=== PATIENT | male | born 1955 | race Caucasian/White ===

== ENCOUNTER → 2017-06-16 | Outpatient (CLI) | payer BC ==
[~2017-06-16] MED LIST: ASPIRIN325 MG PO; ATORVASTATIN CA20 MG PO; IOPAMIDOL 370 MG/ML 200 ML INFUS..BTL INJ ONE; LASIX20 MG PO; LEVOCETIRIZINE D5 MG PO; LISINOPRIL10 MG PO; LISINOPRIL2.5 MG PO; LOPRESSOR25 MG PO; MONTELUKAST SOD10 MG PO; NITROGLYCERIN0.4 MG SL; PLAVIX75 MG PO; SODIUM CHLORIDE 0.9% 50ML 100 ML ONE
[2017-06-16 15:53] LABS: BLOOD UREA NITROGEN 21 mg/dL (7-26); BUN/CREATININE RATIO 22 (6-25); CREATININE, SERUM 0.94 mg/dL (0.72-1.25); EST GLOMERULAR FILTRATION RATE > 60 ML/MIN (60-)
--- NOTE | 2017-06-19 14:15 | Diagnostic Imaging Report ---
EXAM: CTA Chest Abdomen, WITH contrast INDICATION: COMPARISON: None. TECHNIQUE: Angiogram of the Chest, Abdomen, was scanned utilizing a multidetector helical scanner after administration of IV contrast. Coronal and sagittal reformations were obtained. Reformatted axial MIP images were obtained and reviewed. IV CONTRAST: 100 mL Isovue-370 COMPLICATIONS: None RADIATION DOSE: Total DLP: 770 mGy*cm Estimated effective dose: (DLP x 0.015 x size factor) mSv CTDIvol has been reviewed. It is below the limits set by the Radiation Protocol Committee (RPC). FINDINGS: VASCULAR: Aortic Annulus: 26 mm. Sinus of Valsalva: 42 mm. Ascending Aorta at level of PA: 38 mm. Mid Arch: 30 mm. Proximal Descendin mm. Mid Descendin mm. Distal Descendin mm. Other: No dissection or significant atherosclerotic change. Common origin left common carotid and right brachiocephalic arteries. Abdominal Aorta Mesenteric Segment: 28 mm. Abdominal Aorta Just Below Renal Arteries: 26 mm. Mid Infrarenal Abdominal Aorta: 44 x 42 mm. It is unclear whether there is significant mural plaque or whether there is a focal short segment dissection with thrombosed false lumen. Inner contrast opacification 28 x 20 mm. Abdominal Aortal at Bifurcation: 21 mm. Mesenteric Arteries: Celiac trunk, SMA, and single bilateral renal arteries widely patent. YURI patent, with questionable diminished opacification. RCIA: 10 mm. LCIA: 12 mm. Internal Iliac Arteries: Not visualized current study Chest: Lower Neck: Subcentimeter hypodensity right thyroid lobe. Heart and Great Vessels: The main pulmonary artery measure 28 mm. The cardiothoracic radio measures 14/26. No intracardiac filling defect. No pulmonary embolus. Branching pattern coronary arteries routine. Lymph Nodes: No suspicious adenopathy. Lungs: Mild biapical scarring. There is no pneumothorax or pleural effusion. Dependent groundglass opacities in the lung bases statistically represent atelectasis. Abdomen: Solid Organs: Hypodensity anteriorly in the liver is too small to definitively characterize but statistically represents a cyst. Liver, adrenals, kidneys, spleen, and pancreas otherwise unremarkable. Upper GI Tract: Gastric decompression limits adequate evaluation. No small bowel obstructive changes. Lymph Nodes: No suspicious adenopathy. Other: No free fluid or free air. No inflammatory changes about the dilated aorta. Pelvis: Not included current study. IMPRESSION: 1. Infrarenal abdominal aortic aneurysm 44 x 42 mm with either significant mural plaque or short segment dissection with thrombosed false lumen. No inflammatory changes present about the aorta to suggest acute aortic pathology. 2. 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 Signed by: Dr. Ramón Adan MD on 06/19/2017 2:12 PM
--- NOTE | 2017-06-19 14:15 | Diagnostic Imaging Report ---
EXAM: CTA ABDOMEN DATE: 06/16/2017 3:11 PM INDICATION: \[id number] \S\[id number] \S\ABDOMINAL AORTIC ANEURYSM COMPARISON: None FINDINGS: Please see CTA chest for details. IMPRESSION: As above. Signed by: Dr. Ramón Adan MD on 06/19/2017 2:12 PM
== END ==
LOC: CT 14:52
DX: I25.10 Atherosclerotic heart disease of native coronary artery without angina pectoris (principal)
CPT/HCPCS: 36415; 71275; 74175; 82565; 84520; Q9967

== ENCOUNTER 2020-09-30 11:02 | Emergency (ER) | payer BC ==
[2020-09-30] VITALS (11 sets, daily range): BP systolic 110–130; BP diastolic 70–89
[~2020-09-30] VITALS: Ht 180.3 cm; Wt 71.2 kg
[~2020-09-30 11:02] MED LIST changes: -IOPAMIDOL 370 MG/ML 200 ML INFUS..BTL INJ ONE; -SODIUM CHLORIDE 0.9% 50ML 100 ML ONE
[2020-09-30] MEDS ORDERED: CLOPIDOGREL BISULFATE 75 MG TAB PO ONE (11:15)
[2020-09-30] MEDS ORDERED: HEPARIN SOD (PORCINE) 5,000 UNIT/ML VIAL IV NR (11:15)
[2020-09-30] MEDS ORDERED: CLOPIDOGREL BISULFATE 75 MG TAB PO NR (11:15)
[2020-09-30] MEDS ORDERED: ASPIRIN 81 MG CHEW TAB PO STA (11:16)
[2020-09-30] MEDS ORDERED: ONDANSETRON HCL INJ 2MG/ML 2ML 2 MG/ML VIAL IV NR (11:20)
[2020-09-30 11:24] LABS: BASOPHILS % 0.4 % (0.0-1.0); EOSINOPHILS # (AUTO) 0.1 (0.0-0.4); EOSINOPHILS % 1.3 % (0.0-6.0); HEMOGLOBIN 17.3 g/dL (14.0-18.0); LYMPHOCYTES # (AUTO) 3.6 (1.0-3.2); LYMPHOCYTES % 39.8 % (18.0-39.1); MEAN CORPUSCULAR HGB CONC 32.6 g/dL (31-35); MEAN CORPUSCULAR VOLUME 91.9 fL (81-99); MONOCYTES # (AUTO) 0.7 (0.2-0.8); MONOCYTES % 8.3 % (4.4-11.3); NEUTROPHILS # (AUTO) 4.4 (2.1-6.9); NEUTROPHILS % 49.8 % (38.7-80.0); PLATELET COUNT 198 x10e3/uL (140-360); RED BLOOD COUNT 5.77 x10e6/uL (4.3-5.7); RED CELL DISTRIBUTION WIDTH 13.6 % (11.7-14.4)
[2020-09-30 11:29] LABS: INR 0.8; PROTHROMBIN TIME 11.6 seconds (11.9-14.5)
[2020-09-30 11:30] LABS: PARTIAL THROMBOPLASTIN TIME 25.8 seconds (23.8-35.5)
[2020-09-30] MEDS ORDERED: ONDANSETRON HCL INJ 2MG/ML 2ML 2 MG/ML VIAL IV PRN (11:30)
[2020-09-30] MEDS ORDERED: MORPHINE SULFATE INJ 2 MG/ML SYR IV PRN (11:30)
[2020-09-30 11:38] LABS: ALANINE AMINOTRANSFERASE 20 IU/L (0-55); ALBUMIN 4.4 g/dL (3.5-5.0); ALBUMIN/GLOBULIN RATIO 1.2 (0.8-2.0); ALKALINE PHOSPHATASE 91 IU/L (40-150); ANION GAP 18.3 mmol/L (8-16); BLOOD UREA NITROGEN 24 mg/dL (7-26); BUN/CREATININE RATIO 19 (6-25); CALCIUM 9.9 mg/dL (8.4-10.2); CARBON DIOXIDE 27 mmol/L (22-29); CHLORIDE 101 mmol/L (98-107); CREATINE KINASE 105 IU/L (30-200); CREATININE, SERUM 1.27 mg/dL (0.72-1.25); EST GLOMERULAR FILTRATION RATE 57 ML/MIN (60-); GLUCOSE 248 mg/dL (74-118); MAGNESIUM 2.1 MG/DL (1.3-2.1); POTASSIUM 4.3 mmol/L (3.5-5.1); SODIUM 142 mmol/L (136-145)
[2020-09-30] MEDS ORDERED: HEPARIN SOD/SOD CHLORIDE 2,000 ML ONE (11:46)
[2020-09-30] MEDS ORDERED: IOPAMIDOL 370 MG/ML 200 ML INFUS..BTL INJ ONE (11:46)
[2020-09-30] MEDS ORDERED: LIDOCAINE HCL 2% LOCAL 20 ML VIAL ONE (11:47)
[2020-09-30] MEDS ORDERED: SODIUM CHLORIDE 0.9% 1000ML 1,000 ML ONE (11:50)
[2020-09-30] MEDS ORDERED: NITROGLYCERIN/D5W 200 MCG/ML 250 ML ONE (11:50)
[2020-09-30] MEDS ORDERED: HEPARIN SOD (PORCINE) 1000 UNIT/ML 30ML ONE (11:50)
[2020-09-30] MEDS ORDERED: FENTANYL CITRATE/PF 100MCG/2 ML INJ ONE (11:54)
[2020-09-30] MEDS ORDERED: MIDAZOLAM HCL 2 MG/2 ML VIAL ONE (11:54)
[2020-09-30] MEDS ORDERED: BIVALRIUDIN 250 MG/VIAL VIAL IV ONE (12:11)
[2020-09-30] MEDS ORDERED: SODIUM CHLORIDE 0.9% 50ML 50 ML ONE (12:11)
== END 2020-09-30 11:51 | disposition other institution (70) ==
LOC: ER 11:08
DX: R07.9 Chest pain, unspecified (principal); I21.3 ST elevation (STEMI) myocardial infarction of unspecified site; I25.10 Atherosclerotic heart disease of native coronary artery without angina pectoris; Z20.822 Contact with and (suspected) exposure to COVID-19; E78.5 Hyperlipidemia, unspecified
CPT/HCPCS: 36415; 71045; 80053; 82550; 82553; 83735; 83880; 84484; 85025; 85610; 85730; 93005; 99285; C1769; J0583; J2001; J2250; J3010; J7030; Q9967; U0002; 33970; 93454; 99152; 99153; J1644